=== PATIENT | male | born 1960 ===

== ENCOUNTER 2020-03-27 12:03 | Inpatient (IN) ==
[2020-03-27] MEDS ORDERED: CeFAZolin Syr 2,000MG/20 ML 2,000 MG/20 ML SYRINGE IVPB ONE (12:44)
[2020-03-27] MEDS ORDERED: Ringers Solution, Lactated 1,000 ML IVC SCH ×2 (12:45→17:33)
[2020-03-27 13:48] LABS: Basophils % 0.1 %; Eosinophils # 0.1 K/mcL (0.0-0.6); Eosinophils % 0.8 %; Immature Granulocytes % 0.2 % (0-4); Lymphocytes # 1.4 K/mcL (0.6-4.6); Lymphocytes % 16.8 %; Mean Corpuscular HGB Conc 34.8 g/dL (31.6-35.5); Mean Corpuscular Hemoglobin 32.6 pg (28.0-33.3); Mean Corpuscular Volume 93.7 fL (83.0-100.0); Mean Platelet Volume 9.6 fL (9.4-12.4); Monocytes # 0.8 K/mcL (0.0-1.3); Monocytes % 9.2 %; Neutrophils # 6.2 K/mcL (1.6-8.9); Platelet Count 248 K/mcL (140-400); Red Blood Count 4.91 M/mcL (4.19-5.50); Red Cell Distribution Width 12.4 % (11.5-14.5); Segmented Neutrophils % 72.9 %; White Blood Count 8.6 K/mcL (4.3-11.1)
[2020-03-27 13:51] LABS: BUN/Creatinine Ratio 15 (6-26); Blood Urea Nitrogen 13 mg/dL (6-20); Calcium 9.6 mg/dL (8.6-10.3); Carbon Dioxide 27 mEq/L (23-29); Chloride 103 mEq/L (98-107); Glucose 106 mg/dL (70-105); Osmolality,Calculated 285 (280-300); Potassium 4.1 mEq/L (3.5-5.1); Sodium 137 mEq/L (136-145); eGFR For African Americans > 60 (> 60); eGFR For Non-African Americans > 60 (> 60)
[2020-03-27] MEDS ORDERED: Acetaminophen IV 1,000 MG/100 ML INFUS..BTL IVPB ONE (15:05)
[2020-03-27] MEDS ORDERED: Pregabalin 75 MG CAPSULE PO ONE (15:05)
[2020-03-27] MEDS ORDERED: *HR* OxyCODONE Immed Rel 5 MG TABLET PO PRN ×2 (15:05→17:33)
[2020-03-27] MEDS ORDERED: *HR* Promethazine 25 MG/ML VIAL IVP PRN (15:05)
[2020-03-27] MEDS ORDERED: *HR* HYDROmorphone 2 MG TABLET PO PRN (15:05)
[2020-03-27] MEDS ORDERED: Famotidine 20 MG/2 ML VIAL IVP ONE (15:05)
[2020-03-27] MEDS ORDERED: *HR* HYDROmorphone (PF) 1 MG/ML SYRINGE IVP PRN (15:05)
[2020-03-27] MEDS ORDERED: Ethanol\\Acetic Acid\\Na Ace\\Ben 1,000 ML IRRIG.SOLN IR ONE (15:12)
[2020-03-27] MEDS ORDERED: Vancomycin 1,000 MG VIAL ONE (15:12)
[2020-03-27] MEDS ORDERED: Lidocaine -MPF 4% 5 ML AMPUL ONE (15:21)
[2020-03-27] MEDS ORDERED: *HR* FentaNYL (PF) 100 MCG/2 ML VIAL ONE (15:22)
[2020-03-27] MEDS ORDERED: *HR* Succinylcholine 200 MG/10 ML VIAL IVP ONE (15:22)
[2020-03-27] MEDS ORDERED: Ondansetron 4 MG/2 ML VIAL ONE (15:22)
[2020-03-27] MEDS ORDERED: Dexamethasone 4 MG/ML VIAL ONE ×2 (15:22)
[2020-03-27] MEDS ORDERED: Lidocaine -MPF 2% 2 ML VIAL ONE (15:22)
[2020-03-27] MEDS ORDERED: *HR* Rocuronium Bromide 50 MG/5 ML VIAL ONE (15:22)
[2020-03-27] MEDS ORDERED: *HR* Propofol 200 MG/20 ML VIAL IVP ONE (15:22)
[2020-03-27] MEDS ORDERED: *HR* Midazolam HCl 2 MG/2 ML VIAL ONE (15:22)
[2020-03-27] MEDS ORDERED: Ropivacaine/PF 0.5% 30 ML VIAL ONE (15:27)
[2020-03-27] MEDS ORDERED: ROPIVACAINE/PF/NS 0.25% 1 EACH SYRINGE INTRAART ONE (15:27)
[2020-03-27] MEDS ORDERED: *HR* HYDROMORPHONE 2 MG/ML VIAL ONE (16:00)
[2020-03-27] MEDS ORDERED: *HR* PHENYLEPHRINE 1,000 MCG/10 ML SYRINGE IVP ONE (16:08)
[2020-03-27] MEDS: *HR* Labetalol 20 MG/4 ML SYRINGE IVP PRN ×2 (16:53→17:05)
[2020-03-27 17:20] LABS: Hematocrit 40.8 % (37.5-50.1)
[2020-03-27 17:21] LABS: Hemoglobin 14.1 g/dL (12.9-16.9)
[2020-03-27] MEDS ORDERED: Insulin LISPRO 300 UNITS/3 ML VIAL SQ SCH ×2 (17:33→21:00)
[2020-03-27] MEDS ORDERED: MOM Conc 10 ML UD.LIQ PO PRN (17:33)
[2020-03-27] MEDS ORDERED: Naloxone 0.4 MG/ML INJ IVP PRN (17:33)
[2020-03-27] MEDS ORDERED: CeFAZolin 2 GM/120 ML BAG IVPB SCH (17:33)
[2020-03-27] MEDS ORDERED: D5% in Water 1,000 ML IVC PRN (17:33)
[2020-03-27] MEDS ORDERED: Sennosides 8.6 MG TABLET PO PRN (17:33)
[2020-03-27] MEDS ORDERED: *HR* OxyCODONE/APAP 5/325 TABLET PO PRN (17:33)
[2020-03-27] MEDS ORDERED: *HR* Dextrose 50 % in Water (Vial) 50 ML VIAL IVP PRN (17:33)
[2020-03-27] MEDS ORDERED: Dextrose Gel 15 GM/37.5 ML TUBE PO PRN ×2 (17:33)
[2020-03-27] MEDS ORDERED: Ondansetron 4 MG/2 ML VIAL IVP PRN (17:33)
[2020-03-27] MEDS ORDERED: *HR* Enoxaparin 30 MG/0.3 ML SYRINGE SQ SCH ×2 (18:00)
[2020-03-27 19:38] VITALS: BP 169/101
[2020-03-28] MEDS ORDERED: Valsartan 160 MG TABLET PO SCH (09:00)
[2020-03-28] MEDS ORDERED: hydroCHLOROthiazide 25 MG TABLET PO SCH (09:00)
[2020-03-28] MEDS ORDERED: Multivit/Ca/Min/Fe/FA 1 TAB TABLET PO SCH (09:00)
== END 2020-03-27 20:20 | disposition home or self-care (01) | DRG 483 ==
LOC: SAMDAY 12:03 → 3NENU 17:34
PROVIDERS: ADMIT Orthopaedic Surgery; ATTEND Orthopaedic Surgery